=== PATIENT | female | born 1990 | race Caucasian/White ===

== ENCOUNTER 2016-10-05 22:56 | Outpatient (CLI) | payer MEDICAID ==
[~2016-10-05] VITALS: Ht 149.9 cm; Wt 88.5 kg
[~2016-10-05 22:56] MED LIST: AMOXICILLIN500 M2 PO; AURALGAN O10 ML/BOTT OT; FERROUS SULFAT325 M2 PO; IBUPROFEN400 MG PO; IRON TABLETS325 MG PO; PRENATAL PLUS1 TA1 PO; PRENATAL VITAMI1 TA3 PO
[2016-10-05 23:21] VITALS: BP 124/66
[2016-10-05 23:42] LABS: URINE BILIRUBIN - DIPSTICK NEGATIVE (NEG); URINE BLOOD NEGATIVE (NEG)
== END 2016-10-06 01:00 | disposition home or self-care (01) ==
LOC: OBOUT 22:56 → OB 22:56 → OBOUT 10-06 01:00
PROVIDERS: Nurse Practitioner Obstetrics & Gynecology
DX: O60.03 Preterm labor without delivery, third trimester (principal); Z3A.36 36 weeks gestation of pregnancy

== ENCOUNTER 2017-02-14 15:12 | Emergency (ER) | payer OTHER, MEDICAID ==
[~2017-02-14] VITALS: Ht 151.1 cm; Wt 79.8 kg
[~2017-02-14 15:12] MED LIST changes: +FLINTSTONES CO1 EAC1 PO
--- NOTE | 2017-02-14 15:52 | Urgent Treatment Center Report ---
History of Present Issue Date/Time Seen by Provider 02/14/17 4686 Visit Reason Pt arrived:Walked Presenting Problem:PT STATES SWELLING TO LEFT SIDE OF FACE, DRAINAGE FROM L EAR, AND VOMITING FOR THREE DAYS Location if Accident: Onset of symptoms date/time:/ or onset unknown for:MEDICAL HX UNKNOWN Have you (or family members/close friends) recently traveled outside the [place]? N If Yes, where/when: Have you had exposure to infectious disease within the past month? TB? Other? Specify: Source patient Exam Limitations no limitations Comment 26-year-old female presents for LEFT ear pain. Patient was seen at [facility] yesterday and placed on amoxicillin but unsure of the dose.reports pain is worse today. ALLERGIES Coded Allergies: No Known Allergies (02/14/17) Home Medications Reported Medications AMOXICILLIN TRIHYDRATE (Amoxicillin 250MG Cap) (Unknown Dose) PO BID History Medical History General CAD? No Angina: No RI: No Hypertension? No Hyperlipidemia? No CHF? No DVT? No PE? No COPD? No Asthma? No Anemia? No GERD? No Gastric ulcers? No GI Bleed? No Hernia? No Thyroid Problems? No Hypothyroidism? No CVA? No Seizures? No Diabetes? No Insulin Dependent: No Insulin Pump: No Home FSBS? No Renal Insuffiency? No UTI? No Stones? No BPH? No GB Disease: No Nephritic Syndrome? No Asplenia? No Hepatitis? No Sickle Cell Disease? No Arthritis? No Migraines? No Cataracts? No Glaucoma? No MRSA? No HIV? No TB? No Anxiety? No Depression? No Cancer? No More? 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 Physical Exam Vital Signs Vital Signs Date Time Temp Pulse Resp B/P Pulse O2 O2 Flow FiO2 Ox Delivery Rate 02/14 1527 101.5 103 20 129/75 97 General Appearance normal appearance, WD/WN, no apparent distress Ear, Nose, Throat abnormal TM (L), LEFT ear canal red, swollen, external ear lobe warm to touch. Neck normal inspection, full range of motion Respiratory Status Yes: trachea midline, chest symmetrical, non tender chest. No: respiratory distress. Lung Sounds bilateral: normal breath sounds, lungs clear. Cardiovascular normal exam, regular rate/rhythm, no peripheral edema Neurologic alert, normal exam, oriented x 3 Medical Decision Making LABS/Meds/Orders Pt receiving controlled substance in ED? No Results/Orders Current Medication Orders Sig/Jaclyn Start time Last Medication Dose Route Stop Time Status Admin Dexamethasone Sodium 0 .STK-MED ONE 02/14 1704 DC Phosphate .ROUTE Dexamethasone Sodium 4 MG ONCE ONE 02/14 1700 DC 02/14 Phosphate IM 02/14 1701 1705 Acetaminophen 0 .STK-MED ONE 02/14 1601 DC PO Acetaminophen 650 MG ONCE ONE 02/14 1600 DC 02/14 PO 02/14 1601 1601 Consult MD Physician Consult 1 Consult/PCP Irene Time Called 1551 Reason Pt. Condition Physician Consult 2 Consult/PCP irene Time Called 1621 Reason Pt. Condition Comments Paged irene Departure Departure Time of Disposition 1622 Disposition DC Home or Self Care(routine) Clinical Impression Primary Impression: Otitis externa Qualifiers: Otitis externa type: unspecified type Chronicity: acute Laterality: left Qualified Code: H60.502 - Unspecified acute noninfective otitis externa, left ear Condition STABLE Referrals Teto DERAS,[facility] Patient Instructions DI for Otitis Externa, Otitis Externa Additional Instructions Medications as ordered, continue amoxicillin given by [facility] Follow-up with PCP this week, call Dr. Irene's office Thursday for an appointment Tylenol Motrin as needed for pain or fever Return her E seen in the ER symptoms worsen or do not improve Discharge Counseling Counseled pt/family regarding diagnosis, medications/RX, home care, follow up needs Prescriptions Current Visit Scripts Methylprednisolone (Medrol Dose Ronald) 4 MG PO UD #1 RONALD TAKE DIRECTED ON PACKAGING [id number] OTIC SUSP (Bhjrirfr-Ghnuasunc-Pr Ear Susp) 4 DROP OT QID 10 Days INSTILL IN AFFECTED EAR(S) at 1722
--- NOTE | 2017-02-14 15:52 | Urgent Treatment Center Report ---
History of Present Issue Date/Time Seen by Provider 02/14/17 0456 Visit Reason Pt arrived:Walked Presenting Problem:PT STATES SWELLING TO LEFT SIDE OF FACE, DRAINAGE FROM L EAR, AND VOMITING FOR THREE DAYS Location if Accident: Onset of symptoms date/time:/ or onset unknown for:MEDICAL HX UNKNOWN Have you (or family members/close friends) recently traveled outside the [place]? N If Yes, where/when: Have you had exposure to infectious disease within the past month? TB? Other? Specify: Source patient Exam Limitations no limitations Comment 26-year-old female presents for LEFT ear pain. Patient was seen at [facility] yesterday and placed on amoxicillin but unsure of the dose.reports pain is worse today. ALLERGIES Coded Allergies: No Known Allergies (02/14/17) Home Medications Reported Medications AMOXICILLIN TRIHYDRATE (Amoxicillin 250MG Cap) (Unknown Dose) PO BID History Medical History General CAD? No Angina: No OR: No Hypertension? No Hyperlipidemia? No CHF? No DVT? No PE? No COPD? No Asthma? No Anemia? No GERD? No Gastric ulcers? No GI Bleed? No Hernia? No Thyroid Problems? No Hypothyroidism? No CVA? No Seizures? No Diabetes? No Insulin Dependent: No Insulin Pump: No Home FSBS? No Renal Insuffiency? No UTI? No Stones? No BPH? No GB Disease: No Nephritic Syndrome? No Asplenia? No Hepatitis? No Sickle Cell Disease? No Arthritis? No Migraines? No Cataracts? No Glaucoma? No MRSA? No HIV? No TB? No Anxiety? No Depression? No Cancer? No More? 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 Physical Exam Vital Signs Vital Signs Date Time Temp Pulse Resp B/P Pulse O2 O2 Flow FiO2 Ox Delivery Rate 02/14 1527 101.5 103 20 129/75 97 General Appearance normal appearance, WD/WN, no apparent distress Ear, Nose, Throat abnormal TM (L), LEFT ear canal red, swollen, external ear lobe warm to touch. Neck normal inspection, full range of motion Respiratory Status Yes: trachea midline, chest symmetrical, non tender chest. No: respiratory distress. Lung Sounds bilateral: normal breath sounds, lungs clear. Cardiovascular normal exam, regular rate/rhythm, no peripheral edema Neurologic alert, normal exam, oriented x 3 Medical Decision Making LABS/Meds/Orders Pt receiving controlled substance in ED? No Results/Orders Current Medication Orders Sig/Jaclyn Start time Last Medication Dose Route Stop Time Status Admin Dexamethasone Sodium 0 .STK-MED ONE 02/14 1704 DC Phosphate .ROUTE Dexamethasone Sodium 4 MG ONCE ONE 02/14 1700 DC 02/14 Phosphate IM 02/14 1701 1705 Acetaminophen 0 .STK-MED ONE 02/14 1601 DC PO Acetaminophen 650 MG ONCE ONE 02/14 1600 DC 02/14 PO 02/14 1601 1601 Consult MD Physician Consult 1 Consult/PCP Irene Time Called 1551 Reason Pt. Condition Physician Consult 2 Consult/PCP irene Time Called 1621 Reason Pt. Condition Comments Paged irene Departure Departure Time of Disposition 1622 Disposition DC Home or Self Care(routine) Clinical Impression Primary Impression: Otitis externa Qualifiers: Otitis externa type: unspecified type Chronicity: acute Laterality: left Qualified Code: H60.502 - Unspecified acute noninfective otitis externa, left ear Condition STABLE Referrals Teto DERAS,[facility] Patient Instructions DI for Otitis Externa, Otitis Externa Additional Instructions Medications as ordered, continue amoxicillin given by [facility] C Follow-up with PCP this week, call Dr. Irene's office Thursday for an appointment Tylenol Motrin as needed for pain or fever Return her E seen in the ER symptoms worsen or do not improve Discharge Counseling Counseled pt/family regarding diagnosis, medications/RX, home care, follow up needs Prescriptions Current Visit Scripts Methylprednisolone (Medrol Dose Ronald) 4 MG PO UD #1 RONALD TAKE DIRECTED ON PACKAGING [id number] OTIC SUSP (Pijpeklw-Fieqqrkfd-Pi Ear Susp) 4 DROP OT QID 10 Days INSTILL IN AFFECTED EAR(S) at 1722
[2017-02-14] MEDS ORDERED: AMOXICILLIN 25250 MG PO (16:05)
[2017-02-14] MEDS ORDERED: MEDROL 4MG. DOSE4 MG PO (16:51)
[2017-02-14] MEDS ORDERED: CORTISPORIN (GE10 M1 OT (16:53)
[2017-02-14 17:25] VITALS: BP 129/75
== END 2017-02-14 17:28 | disposition home or self-care (01) ==
LOC: UTC 15:12
DX: H60.592 Other noninfective acute otitis externa, left ear (principal)